=== PATIENT | female | born 1975 | race Caucasian/White ===

== ENCOUNTER 2016-10-29 16:26 | Inpatient (IN) | payer OTHER ==
[~2016-10-29] VITALS: Ht 180.3 cm; Wt 122.0 kg
[~2016-10-29 16:26] MED LIST: ACYC200C10 PO; LEVA0.042 IH
[2016-10-29 16:39] VITALS: BP 158/82
--- NOTE | 2016-10-29 16:48 | NUR ---
BROUGHT TO BED 3.MD AWARE OF HEADACHE AND HX OF PATIENT.
--- NOTE | 2016-10-29 16:57 | NUR ---
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 PT STATES SHE FEELS AND NAUSEATED AND VOMITTED TODAY;DENIES CP/SOB/F/;AAOX4;NO ACUTE DISTRESS NOTED AT THIS TIME;HOB ELEVATED;NEEDS ATTENDED;SAFETY MEAUSURES DONE;POSITIONED FOR COMFORT.
[2016-10-29] MEDS ORDERED: PROCHLORPERAZINE 10 MG/2 ML VIAL IVP ONE (17:40)
[2016-10-29] MEDS ORDERED: diphenhydrAMINE 50 MG/ML VIAL IVP ONE (17:40)
[2016-10-29] MEDS ORDERED: SUMAtriptan 6 MG/0.5 ML VIAL SUBQ ONE (17:40)
--- NOTE | 2016-10-29 17:44 | NUR ---
DR FRANCO AT BEDSIDE.
--- NOTE | 2016-10-29 18:40 | NUR ---
PT IS A HARD STICK;CHARGE NURSE AURORA PUTTING THE LINE.
[2016-10-29 19:02] LABS: AMPHETAMINE, URINE NEG. ng/ml (NEG <=1000); BARBITURATE, URINE NEG. ng/ml (NEG <=200); BENZODIAZEPINE, URINE NEG. ng/mL (NEG <=200); CANNABINOID, URINE NEG. ng/mL (NEG <=50); COCAINE, URINE NEG. ng/mL (NEG <=300); OPIATE, URINE NEG. ng/mL (NEG <=2000); PHENCYCLIDINE SCREEN,URINE NEG. ng/mL (NEG <=25)
--- NOTE | 2016-10-29 19:18 | NUR ---
PT RESTING ON BED;NO ACUTE DISTRESS NOTED;WILL CONTINUE TO MONITOR PT.
--- NOTE | 2016-10-29 19:19 | NUR ---
Pt report given to CIPRIANO GONGORA. Transfer of care at this time.
[2016-10-29] MEDS ORDERED: ACETAMINOPHEN 325 MG TAB PO PRN (19:20)
[2016-10-29] MEDS ORDERED: ONDANSETRON 4 MG/2 ML VIAL IVP PRN (19:20)
[2016-10-29] MEDS ORDERED: LORazepam 2 MG/ML VIAL IVP PRN (19:20)
--- NOTE | 2016-10-29 19:26 | NUR ---
Patient will be admitted to care of DR. MCDANIEL. Admited to TELEMETRY. Will go to [id number]. Belongings list completed.
--- NOTE | 2016-10-29 19:26 | NUR ---
Jeff acosta in ED - 10/29/16 at 2236 by [facility] Patient will be admitted to care of DR. MCDANIEL. Admited to TELEMTRY. Will go to room 111 A. Belongings list completed.
[2016-10-29] MEDS ORDERED: HYDROcodone/APAP 7.5/325 MG 1 TAB PO PRN (19:30)
[2016-10-29] MEDS ORDERED: APAP/BUTAL/CAFF 325/50/40 MG 1 TAB PO PRN (19:30)
[2016-10-29] MEDS ORDERED: ALBUTEROL SULFATE/IPRATROPIU 3 ML SOL IH PRN (19:30)
[2016-10-29] MEDS ORDERED: SUMAtriptan 25 MG TAB PO PRN (19:30)
--- NOTE | 2016-10-29 19:35 | NUR ---
RECEIVED ALERT,NOT IN ACUTE DISTRESS. COMPLAINED 0F PAIN=9/10 AND NAUSEA. MEDS UNABLE TO GIVE, NO IV ACCESS AT THIS TIME.
--- NOTE | 2016-10-29 19:40 | NUR ---
GAUGE 20 IV LINE ESTABLISHED TO THE RIGHT AC. BLOOD ALSO DRAWN AND SENT TO THE LAB.
[2016-10-29 19:50] LABS: BASOPHILS % (AUTO) 0.6 % (0.0-2.0); EOSINOPHILS # (AUTO) 0.1 K/uL (0-0.4); EOSINOPHILS % (AUTO) 1.5 % (0.0-4.0); HEMATOCRIT 35.4 % (36-48); HEMOGLOBIN 11.5 g/dL (12.0-16.0); LYMPHOCYTES # (AUTO) 1.1 K/uL (2.5-16.5); LYMPHOCYTES % (AUTO) 13.4 % (20.5-51.1); MEAN CORPUSCULAR HEMOGLOBIN 24 pg (27-31); MEAN CORPUSCULAR HGB CONC 32 g/dL (33-37); MEAN CORPUSCULAR VOLUME 75 fL (80-94); MONOCYTES # (AUTO) 0.8 K/uL (0.8-1.0); MONOCYTES % (AUTO) 9.2 % (1.7-9.3); NEUTROPHILS # (AUTO) 6.2 K/uL (1.8-7.7); NEUTROPHILS % (AUTO) 75.3 % (42.2-75.2); PLATELET COUNT (AUTO) 328 K/uL (140-450); RED BLOOD CELL COUNT(AUTO) 4.73 MIL/uL (4.20-5.40); RED CELL DISTRIBUTION WIDTH 14.9 % (11.6-13.7); WHITE BLOOD COUNT (AUTO) 8.2 K/uL (4.8-10.8)
--- NOTE | 2016-10-29 19:50 | NUR ---
BENADRYL 25 MG IVP,COMPAZINE 10 MG IVP AND IMITREX 6 MG SQ GIVEN ORDERED. PT. FOR CT OF HEAD WITH IV CONTRAST.
[2016-10-29 20:20] LABS: INR 1.1 (0.8-1.2); PARTIAL THROMBOPLASTIN TIME 23.4 secs (22-35.6)
[2016-10-29 20:37] LABS: CALCIUM 9.5 mg/dL (8.5-10.1); CARBON DIOXIDE 25.9 mmol/L (21-32); CHLORIDE 105 mmol/L (98-107); CREATININE 0.6 mg/dL (0.6-1.3); GFR ARICAN-AMERICAN 142 mL/min (>90); GFR NON ARICAN-AMERICAN 117 mL/min (>90); GLUCOSE 92 mg/dL (74-106); POTASSIUM 3.9 mmol/L (3.5-5.1); SODIUM SERUM 141 mmol/L (136-145); UREA NITROGEN, BLOOD 13 mg/dL (7-18)
--- NOTE | 2016-10-29 20:41 | NUR ---
WENT FOR CT SCAN OF HEAD WITH IV CONTRAST VIA [facility].
[2016-10-29 20:44] LABS: ALANINE AMINOTRANSFERASE 20 U/L (12-78); ALBUMIN 3.4 g/dL (3.4-5.0); ALKALINE PHOSPHATASE 75 U/L (46-116); ASPARTATE AMINOTRANSFERASE 16 U/L (15-37); CHOL/HDL RATIO 2.4 (1-4.5); CHOLESTEROL 145 mg/dL (<200); HDL CHOLESTEROL 60 mg/dL (40-60); LDL (CALC) 77 mg/dL (60-100); MAGNESIUM 1.9 mg/dL (1.8-2.4); TOTAL BILIRUBIN 0.5 mg/dL (0.0-1.0); TOTAL PROTEIN, SERUM 7.4 g/dL (6.4-8.2); TRIGLYCERIDES 42 mg/dL (30-150)
--- NOTE | 2016-10-29 20:55 | NUR ---
BACK FROM CT SCAN. VERBALIZED SIGNIFICANT RELIEF OF PAIN,NAUSEA. VS REMAIN STABLE.
--- NOTE | 2016-10-29 21:20 | NUR ---
REPORT WAS GIVEN TO MARK COTA.
[2016-10-29 21:33] LABS: THYROID STIMULATING HORMONE < 0.01 uIU/mL (0.34-3.76)
[2016-10-29 21:43] VITALS: BP 121/81
--- NOTE | 2016-10-29 21:43 | NUR ---
RECEIVED REPORT FROM ED RN FOR CONTINUITY OF CARE. 41 Y.O. FEMALE WITH DX: HEADACHE ADMITTED TO TELE UNIT. PATIENT IS A&OX4, DISCUSSED PLAN OF CARE WITH PATIENT, VERBALIZED UNDERSTANDING. SHIFT ASSESSMENT DONE, VS TAKEN, HR ELEVATED AT 115-120, PT STATES SHE IS ANXIOUS BUT REFUSED MEDICATION AT THIS TIME. ALL OTHER VS STABLE. PATIENT DENIES PAIN OR HEADACHE AT THIS TIME. SKIN INTACT. IV TO RT AC 20 GAUGE PATENT AND INFUSING FLUIDS WELL. MRSA SWAB COLLECTED, WRISTBANDS APPLIED. SAFETY PRECAUTIONS ENFORCED. CALL LIGHT WITHIN REACH.
[2016-10-29] MEDS: ACYCLOVIR 200 MG CAP PO SCH (22:00)
[2016-10-29] MEDS: NACL 0.9% 1,000 ML IV SCH (23:31)
[2016-10-29] MEDS: KETOROLAC 30 MG/ML VIAL IVP PRN (23:47)
--- NOTE | 2016-10-29 23:47 | NUR ---
VS TAKEN. PT C/O HEADACHE MEDICATED PER MD ORDER. CALL LIGHT WITHIN REACH.
[2016-10-30] VITALS: BP 120/78
--- NOTE | 2016-10-30 02:02 | NUR ---
PT AMBULATED TO RESTROOM, VOIDED. RETURNED TO BED AND ATE A SNACK, TOLERATED WELL. CALL LIGHT WITHIN REACH.
[2016-10-30 04:00] VITALS: BP 98/60
--- NOTE | 2016-10-30 04:26 | NUR ---
PT C/O HEADACHE, ADMINISTERED MEDS PER MD ORDER. CALL LIGHT WITHIN REACH.
[2016-10-30] MEDS: ACYCLOVIR 200 MG CAP PO SCH ×2 (06:00→08:31)
--- NOTE | 2016-10-30 06:02 | NUR ---
PATIENT AMBULATING IN HALLWAY. NO S/S OF DISTRESS NOTED. WILL CONTINUE TO MONITOR.
[2016-10-30] MEDS: NACL 0.9% 1,000 ML IV SCH ×2 (06:27→17:22)
[2016-10-30] MEDS: KETOROLAC 30 MG/ML VIAL IVP PRN ×2 (06:52→21:05)
--- NOTE | 2016-10-30 07:12 | NUR ---
ENDORSED PATIENT TO DAY RN FOR CONTINUITY OF CARE, PATIENT IS IN STABLE CONDITION.
--- NOTE | 2016-10-30 07:18 | NUR ---
REPORT RECEIVED FROM IC DESIGN ENGINEER RN, PT SLEEPING QUIETLY, RESP EVEN UNLABORED, SKIN COLOR WNL, IVF INFUSING WELL, SITE CLEAR, NO IMMEDIATE NEEDS IDENTIFIED AT THIS TIME, CALL TOBIN WITHIN REACH, SIDE RAILS UP X2, BED LOCKED IN LOW POSITION, WILL CONTINUE TO MONITOR
--- NOTE | 2016-10-30 07:57 | NUR ---
PATIENT HAS BEEN SCREENED AND CATEGORIZED MODERATE NUTRITION RISK. PATIENT WILL BE SEEN WITHIN 3-5 DAYS OF ADMISSION. 11/01/16-11/03/[address]
[2016-10-30 08:00] VITALS: BP 126/78
--- NOTE | 2016-10-30 08:36 | NUR ---
PT REFUSED ACYCLOVIR. PT STATES SHE ONLY TAKES MEDICATION WHEN SHE IS HAVING AN OUTBREAK AND SHE IS CURRENTLY NOT. DR. ROBLES MADE AWARE.
[2016-10-30] MEDS ORDERED: HYDROmorphone 1 MG/ML AMP IVP PRN (09:00)
[2016-10-30] MEDS: DOCUSATE SODIUM 100 MG GELCAP PO SCH (09:00)
--- NOTE | 2016-10-30 10:54 | NUR ---
FAXED INITIAL REVIEW TO [facility] [phone] PHONE [phone]
[2016-10-30 12:00] VITALS: BP 149/82
--- NOTE | 2016-10-30 12:31 | NUR ---
PT CO REYNA STARTING, WANTS HER PRN FIORICET, MED NOT AVAILABLE, PHARMACY TO BRING MED, PT AWARE OF PLAN
--- NOTE | 2016-10-30 14:30 | NUR ---
PT RESTING IN BED. NO S/S OF ACUTE DISTRESS. PT DENIES PAIN. CALL LIGHT WITHIN REACH. SAFETY MEASURES ENSURED. WILL CONTINUE TO MONITOR.
[2016-10-30 16:00] VITALS: BP 136/72
--- NOTE | 2016-10-30 18:43 | NUR ---
PT OUT OF SHOWER, BERTO SHOWER WELL WITHOUT LIGHTHEADEDNESS OR DIZZINES, IV REPLACED 22G LEFT HAND, PT BERTO WELL, PT DENIES PAIN OR DISCOMFORT, SPEAKING CLEARLY WITHOUT PROBLEM, NO IMMEDIATE NEEDS IDENTIFIED AT THIS TIME, CALL TOBIN WITHIN REACH, ALL OTHER SAFETY MEASURES IN PLACE, WILL CONTINUE TO MONITOR
--- NOTE | 2016-10-30 19:15 | NUR ---
RECEIVED REPORT FROM CIPRIANO JERNIGAN/GROVER AT BEDSIDE. INITIAL ASSESSMENT COMPLETED. PT AAOX4. AMBULATORY. PT HAS IV TO RIGHT AC G 20; ASYMPTOMATIC, PATENT AND INTACT INFUSING FLUIDS WELL. PT STABLE. ORIENTED PT TO ROOM AND SURROUNDINGS AND USE OF CALL LIGHT. EXPLAINED PLAN OF CARE TO PT AND SHE VERBALIZES UNDERSTANDING. CALL LIGHT WITHIN REACH.
--- NOTE | 2016-10-30 19:24 | NUR ---
ENDORSED PLAN OF CARE TO NIGHT RN. PT REMAINS IN STABLE CONDITION.
[2016-10-30] MEDS ORDERED: SIMVASTATIN 20 MG TAB PO SCH (21:00)
--- NOTE | 2016-10-30 21:01 | NUR ---
PT COMPLAINING OF HEADACHE 12/15, VS STABLE. WILL MEDICATE ORDERED.
--- NOTE | 2016-10-30 21:08 | NUR ---
2100 MED GIVEN AND PT MEDICATED FOR PAIN. WILL CONTINUE TO MONITOR PT.
--- NOTE | 2016-10-30 23:05 | NUR ---
PT AMBULATING ON HALLWAY. PT STATES SHE FEELS OK AND SHE LIKES TO WALK. WILL CONTINUE TO MONITOR PT.
[2016-10-31] VITALS: BP 131/76
--- NOTE | 2016-10-31 00:12 | NUR ---
PT BACK IN BED NOW. PT STABLE. CALL LIGHT WITHIN REACH.
--- NOTE | 2016-10-31 02:05 | NUR ---
ENDORSED PLAN OF CARE TO NURSE'S COMPANION FAIRY. PT IN STABLE CONDITION.
--- NOTE | 2016-10-31 02:10 | NUR ---
RECEIVED REPORT FROM SYMONE COTA.PT IS AWAKE ALERT AND ORIENTED.TAKING REST AT THIS TIME W/O S/S OF ANY DISTRESS.WILL CONTINUE MONITORING.
[2016-10-31] MEDS: KETOROLAC 30 MG/ML VIAL IVP PRN (02:49)
[2016-10-31] MEDS: NACL 0.9% 1,000 ML IV SCH (04:41)
--- NOTE | 2016-10-31 06:29 | NUR ---
RESTING IN BED.PT CALLED AND ASKED TO STOP IVF.EXPLAINED NEED OF IVF BUT STILL WANTED TO STOP IT.STOPPED IT.CONDITION STABLE.NO DISTRESS NOTED AT THIS TIME.
[2016-10-31 06:31] LABS: HEMATOCRIT 30.8 % (36-48); HEMOGLOBIN 9.9 g/dL (12.0-16.0); MEAN CORPUSCULAR HEMOGLOBIN 24 pg (27-31); MEAN CORPUSCULAR HGB CONC 32 g/dL (33-37); MEAN CORPUSCULAR VOLUME 75 fL (80-94); PLATELET COUNT (AUTO) 289 K/uL (140-450); RED BLOOD CELL COUNT(AUTO) 4.09 MIL/uL (4.20-5.40); RED CELL DISTRIBUTION WIDTH 15.2 % (11.6-13.7); WHITE BLOOD COUNT (AUTO) 5.9 K/uL (4.8-10.8)
[2016-10-31 06:57] LABS: BAND % (MANUAL) 1 % (0-8); EOSINOPHILS % (MANUAL) 3 % (0-4); LYMPHOCYTES % (MANUAL) 27 % (20-46); MONOCYTES % (MANUAL) 12 % (5-12); NEUTROPHILS % (MANUAL) 57 (43-65); PLATELET ESTIMATE ADEQUATE
[2016-10-31 07:00] LABS: ANION GAP 11.6 (8-16); CALCIUM 8.4 mg/dL (8.5-10.1); CARBON DIOXIDE 24.3 mmol/L (21-32); CREATININE 0.6 mg/dL (0.6-1.3); POTASSIUM 3.9 mmol/L (3.5-5.1)
--- NOTE | 2016-10-31 07:24 | NUR ---
RECEIVED PT ASLEEP BUT EASILY AROUSABLE, AAOX4, WITH NO S/S OF RESPIRATORY DISCOMFORT. WITH IV ACCESS ON LEFT HAND PATENT AND INTACT, PT REFUSED TO RUN IV FLUIDS STATING "I DONT WANT IT". SKIN IS INTACT. DISCUSSED PLAN OF CARE, PT VERBALIZED UNDERSTANDING. EAGER TO GO HOME. REQUESTED COPIES OF IMAGING DONE, CONTACT NUMBER TO MEDICAL RECORDS PROVIDED. CALL LIGHT WITHIN REACH, WILL CONTINUE TO MONITOR.
[2016-10-31 08:00] VITALS: BP 132/68
[2016-10-31] MEDS ORDERED: CALCIUM ACETATE 667 MG TAB PO ONE (08:00)
--- NOTE | 2016-10-31 08:19 | NUR ---
DUE MEDS GIVEN, PT TOLERATED WELL. HELD COLACE DUE TO PT REPORTED DIARRHEA LAST NIGHT.
[2016-10-31] MEDS: DOCUSATE SODIUM 100 MG GELCAP PO SCH (08:21)
[2016-10-31 08:48] LABS: MAGNESIUM 1.7 mg/dL (1.8-2.4); PHOSPHORUS 4.7 mg/dL (2.5-4.9)
[2016-10-31] MEDS ORDERED: ASPIRIN 81 MG TAB.CHEW PO SCH (09:00)
--- NOTE | 2016-10-31 09:15 | NUR ---
PT COMPLAINED OF HEADACHE, ADMINISTERED TYLENOL, REFUSED TORADOL AND NORCO
--- NOTE | 2016-10-31 09:36 | NUR ---
FAXED CONCURRENT REVIEW TO [facility] [phone] PHONE [phone] REF #[id number]
[2016-10-31 09:46] LABS: T4 (THYROXINE) 17.4 ug/dL (4.5-12.0)
[2016-10-31] MEDS ORDERED: SUMAtriptan 25 MG TAB PO SCH (10:13)
[2016-10-31] MEDS ORDERED: IMI25 PO (10:44)
[2016-10-31] MEDS ORDERED: MAGNESIUM OXIDE 400 MG TAB PO SCH (11:00)
--- NOTE | 2016-10-31 11:15 | NUR ---
DISCHARGE PRESCRIPTION AND INSTRUCTION GIVEN, PT VERBALIZED UNDERSTANDING. ID WRISTBAND AND IV ACCESS REMOVED, CATHETER TIP INTACT. PT LEFT THE UNIT AMBULATING ACCOMPANIED BY SONS IN STABLE CONDITION
[2016-10-31 14:49] LABS: HEMOGLOBIN A1C 5.7 % (4.8-5.6)
== END 2016-10-31 11:15 | disposition home or self-care (01) | DRG 48 ==
LOC: MED 16:26 → MTU 19:26
PROVIDERS: ADMIT Family Medicine; ATTEND Family Medicine
DX: G90.9 Disorder of the autonomic nervous system, unspecified (principal); E83.39 Other disorders of phosphorus metabolism; I10 Essential (primary) hypertension; A60.00 Herpesviral infection of urogenital system, unspecified; M75.102 Unspecified rotator cuff tear or rupture of left shoulder, not specified as traumatic; K21.9 Gastro-esophageal reflux disease without esophagitis; F41.9 Anxiety disorder, unspecified; J45.909 Unspecified asthma, uncomplicated; Z88.6 Allergy status to analgesic agent; Z88.1 Allergy status to other antibiotic agents; Z87.891 Personal history of nicotine dependence; Z87.898 Personal history of other specified conditions; Z79.899 Other long term (current) drug therapy; Z90.49 Acquired absence of other specified parts of digestive tract; Z82.3 Family history of stroke; Z80.9 Family history of malignant neoplasm, unspecified
CPT/HCPCS: 36415; 70450; 71010; 80048; 80053; 80305; 81025; 83036; 83735; 84100; 84436; 84443; 85025; 85610; 85730; 87081; 93005; 96372; 96374; 96375; 99285; J0780; J1200; J1885; J3030; J7030; Q0092; Q0163

== ENCOUNTER 2016-12-06 19:13 | Emergency (ER) | payer OTHER ==
[~2016-12-06] VITALS: Ht 180.3 cm; Wt 122.5 kg
[~2016-12-06 19:13] MED LIST changes: +IMI25 PO
[2016-12-06 19:23] VITALS: BP 142/71
--- NOTE | 2016-12-06 19:32 | NUR ---
41 Y/O F W/C/O PAIN AND SWELLING TO L ANKLE AND L KNEE S/P INJURY X 3 WKS AGO. PT STATES TWISTED ANKLE X 3 WKS. PT STATES HAS A HX OF INJURY TO L KNEE SINCE SHE WAS 14 Y/O. DENIES INJURING L KNEE BUT HAS BEING HURTING SINCE INJURY TO L ANKLE TOOK PLACE.
--- NOTE | 2016-12-06 19:34 | NUR ---
PT TAKEN TO BED 8
[2016-12-06] MEDS ORDERED: fentaNYL 0.05 MG/ML VIAL IM ONE (19:50)
[2016-12-06] MEDS ORDERED: KETOROLAC 60 MG/2 ML VIAL IM ONE (21:25)
--- NOTE | 2016-12-06 21:44 | NUR ---
DR. RECINOS AWARE PT REFUSED TORADOL
[2016-12-06 22:07] VITALS: BP 166/76
--- NOTE | 2016-12-06 22:08 | NUR ---
Patient discharged with v/s stable. Written and verbal after care instructions given and explained. Patient alert, oriented and verbalized understanding of instructions. Ambulatory with steady gait WITH CANE. All questions addressed prior to discharge. ID band removed. Patient advised to follow up with PMD. Rx of IBUPROFEN given. Patient educated on indication of medication including possible reaction and side effects. Opportunity to ask questions provided and answered.PATT GREENE AWARE BP 166/76.PER PT SHE FEELS FINE.
== END 2016-12-06 22:08 | disposition home or self-care (01) ==
LOC: MED 19:13
DX: M25.562 Pain in left knee (principal); R03.0 Elevated blood-pressure reading, without diagnosis of hypertension
CPT/HCPCS: 73562; 96372; 99284; J3010; J1885

== ENCOUNTER 2017-01-24 13:10 | Emergency (ER) | payer OTHER ==
[~2017-01-24] VITALS: Ht 180.3 cm; Wt 117.9 kg
[2017-01-24 13:28] VITALS: BP 143/124
[2017-01-24] MEDS ORDERED: NACL 0.9% 1,000 ML IV ONE (14:35)
[2017-01-24 14:41] LABS: BASOPHILS # (AUTO) 0.1 K/uL (0.00-0.22); EOSINOPHILS # (AUTO) 0.2 K/uL (0-0.4); EOSINOPHILS % (AUTO) 2.5 % (0.0-4.0); HEMATOCRIT 34.4 % (36-48); HEMOGLOBIN 11.1 g/dL (12.0-16.0); LYMPHOCYTES # (AUTO) 1.1 K/uL (2.5-16.5); LYMPHOCYTES % (AUTO) 18.2 % (20.5-51.1); MEAN CORPUSCULAR HEMOGLOBIN 24 pg (27-31); MEAN CORPUSCULAR HGB CONC 32 g/dL (33-37); MEAN CORPUSCULAR VOLUME 73 fL (80-94); MONOCYTES # (AUTO) 0.8 K/uL (0.8-1.0); MONOCYTES % (AUTO) 12.6 % (1.7-9.3); NEUTROPHILS % (AUTO) 65.7 % (42.2-75.2); PLATELET COUNT (AUTO) 309 K/uL (140-450); RED CELL DISTRIBUTION WIDTH 14.6 % (11.6-13.7); WHITE BLOOD COUNT (AUTO) 6.2 K/uL (4.8-10.8)
[2017-01-24 14:42] LABS: APPEARANCE,URINE CLEAR (CLEAR); BILIRUBIN,URINE NEGATIVE (NEGATIVE); BLOOD, URINE NEGATIVE (NEGATIVE); COLOR,URINE YELLOW (YELLOW); LEUKOCYTE ESTERASE ,URINE NEGATIVE (NEGATIVE); NITRITE, URINE NEGATIVE (NEGATIVE); PROTEIN,URINE NEGATIVE (NEGATIVE); UGLUCOSE NEGATIVE (NEGATIVE); UROBILINOGEN,URINE 0.2 EU/dL (0.2 - 1)
[2017-01-24 14:45] LABS: ANION GAP 12.6 (8-16); CALCIUM 9.4 mg/dL (8.5-10.1); CARBON DIOXIDE 26.4 mmol/L (21-32); CHLORIDE 104 mmol/L (98-107); CREATININE 0.6 mg/dL (0.6-1.3); GFR ARICAN-AMERICAN 142 mL/min (>90); GFR NON ARICAN-AMERICAN 117 mL/min (>90); GLUCOSE 88 mg/dL (74-106); SODIUM SERUM 139 mmol/L (136-145); UREA NITROGEN, BLOOD 18 mg/dL (7-18)
--- NOTE | 2017-01-24 14:45 | NUR ---
41 YO FEMALE BIB SELF FOR RAPID HEART BEAT SOB AND SHAKY. . DENIES V/D; SKIN IS PINK/WARM/DRY; AAOX4 WITH EVEN AND STEADY GAIT; LUNGS CLEAR BL; HR EVEN AND REGULAR; PT DENIES ANY FEVER, CP, SOB, OR COUGH AT THIS TIME; PATIENT STATES HEAD ACHE PAIN OF 7/10 AT THIS TIME; VSS; PATIENT POSITIONED FOR COMFORT; HOB ELEVATED; BEDRAILS UP X2; BED DOWN. ER MD MADE AWARE OF PT STATUS.
[2017-01-24] MEDS ORDERED: METOCLOPRAMIDE 10 MG/2 ML INJ VIAL IVP ONE (14:50)
[2017-01-24 14:59] LABS: ALANINE AMINOTRANSFERASE 18 U/L (14-59); ALBUMIN 3.3 g/dL (3.4-5.0); ALKALINE PHOSPHATASE 89 U/L (46-116); ASPARTATE AMINOTRANSFERASE 17 U/L (15-37); TOTAL BILIRUBIN 0.4 mg/dL (0.0-1.0); TOTAL PROTEIN, SERUM 7.6 g/dL (6.4-8.2)
--- NOTE | 2017-01-24 15:25 | NUR ---
AAO PT AMBULATES TO THE RESTROOM
[2017-01-24 15:29] LABS: THYROID STIMULATING HORMONE < 0.01 uIU/mL (0.34-3.74)
--- NOTE | 2017-01-24 16:00 | NUR ---
DR LUU UPDATING THE PT AT BEDSIDE
[2017-01-24 16:29] VITALS: BP 134/82
--- NOTE | 2017-01-24 16:29 | NUR ---
Patient discharged with v/s stable. Written and verbal after care instructions given and explained. Patient alert, oriented and verbalized understanding of instructions. Ambulatory with steady gait. All questions addressed prior to discharge. ID band removed. Patient advised to follow up with PMD. Rx of REGLAN, METHIMAZOLE given. Patient educated on indication of medication including possible reaction and side effects. Opportunity to ask questions provided and answered.
== END 2017-01-24 16:29 | disposition home or self-care (01) ==
LOC: MED 13:10
DX: E03.9 Hypothyroidism, unspecified (principal); K21.9 Gastro-esophageal reflux disease without esophagitis; J45.909 Unspecified asthma, uncomplicated; Z88.1 Allergy status to other antibiotic agents; Z90.49 Acquired absence of other specified parts of digestive tract; Z87.891 Personal history of nicotine dependence
CPT/HCPCS: 36415; 80053; 81003; 81025; 84443; 85025; 93005; 96361; 96374; 99285; J2765; J7030

== ENCOUNTER 2017-06-06 14:03 | Emergency (ER) | payer MEDICAID, OTHER ==
[~2017-06-06] VITALS: Ht 180.3 cm; Wt 116.3 kg
[~2017-06-06 14:03] MED LIST changes: -LEVA0.042 IH; +LEVA0.043 IH
[2017-06-06 14:29] VITALS: BP 141/84
--- NOTE | 2017-06-06 14:36 | NUR ---
Patient ambulated to bed 01.
--- NOTE | 2017-06-06 14:39 | NUR ---
41/F BIB SELF C/O C/O SOB SINCE LAST NIGHT WITH PRODUCTIVE GREEN PLEGM WITH CP AND BCK PAIN 02/14. MILD EXP WHEEZE HEARD. PULSE OX 100%. PT STS REALLY STRESSED AT HOME AND STARTED BACK ON SMOKING CIGARETTES. HX; ASTHMA, THYROID, TORN LT ROTATOR CALF, LT KNEE TORN MINISCUS. 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 RX; METROPOLOL, LISINOPRIL, METHIOMAZOLE.
[2017-06-06] MEDS ORDERED: ALBUTEROL SULFATE/IPRATROPIU 3 ML SOL IH ONE (14:40)
[2017-06-06] MEDS ORDERED: ALBUTEROL 0.083% 2.5 MG/3 ML NEBU INH ONE (14:40)
[2017-06-06] MEDS ORDERED: predniSONE 20 MG TAB PO ONE (14:40)
--- NOTE | 2017-06-06 14:40 | NUR ---
Respiratory Therapist at bedside for respiratory intervention.
--- NOTE | 2017-06-06 15:53 | NUR ---
Dr. Acevedo evaluating patient at bedside.
--- NOTE | 2017-06-06 16:04 | NUR ---
Patient discharged with v/s stable. Written and verbal after care instructions given and explained. Patient alert, oriented and verbalized understanding of instructions. Ambulatory with steady gait. All questions addressed prior to discharge. ID band removed. Patient advised to follow up with PMD. Rx of AZITHROMYCIN, SUDAFED, XOPENEX, PREDNISONE, NORCO given. Patient educated on indication of medication including possible reaction and side effects. Opportunity to ask questions provided and answered.
[2017-06-06 16:18] VITALS: BP 147/87
== END 2017-06-06 16:04 | disposition home or self-care (01) ==
LOC: MED 14:03
DX: J45.909 Unspecified asthma, uncomplicated (principal); Z88.1 Allergy status to other antibiotic agents; K21.9 Gastro-esophageal reflux disease without esophagitis; Z90.89 Acquired absence of other organs; Z90.49 Acquired absence of other specified parts of digestive tract; F17.200 Nicotine dependence, unspecified, uncomplicated
CPT/HCPCS: 94640; 99283; J7512; J7613; J7620

== ENCOUNTER 2019-08-24 17:54 | Emergency (ER) | payer MEDICAID, OTHER ==
[~2019-08-24] VITALS: Ht 180.3 cm; Wt 117.9 kg
[2019-08-24 18:05] VITALS: BP 165/99
--- NOTE | 2019-08-24 18:26 | NUR ---
WAIT AT LOBBY.
[2019-08-24 20:27] VITALS: BP 165/99
--- NOTE | 2019-08-24 20:27 | NUR ---
PATIENT LEFT WITHOUT BEING SEEN BY DR. PARK. NO FURTHER CARE PROVIDED FOR PATIENT.
--- NOTE | 2019-08-24 20:27 | NUR ---
PT WAS CALLED FROM LOBBY, NO ANSWER, LWBS
== END 2019-08-24 20:27 | disposition left against medical advice (07) ==
LOC: MED 17:54
DX: R07.9 Chest pain, unspecified (principal); R11.0 Nausea; Z53.21 Procedure and treatment not carried out due to patient leaving prior to being seen by health care provider
CPT/HCPCS: 93005